=== PATIENT | female | born 1955 | race Caucasian/White ===

== ENCOUNTER 2023-02-22 14:17 | Outpatient (CLI) | payer OTHER, MEDICAID | END 2023-02-22 14:18 | disposition home or self-care (01) | LOC: BICMAMMO 14:17 | PROVIDERS: ATTEND Physician Assistant | DX: Z12.31 Encounter for screening mammogram for malignant neoplasm of breast (principal); Z80.3 Family history of malignant neoplasm of breast | CPT/HCPCS: 77063; 77067 ==

== ENCOUNTER 2023-03-15 16:30 | Inpatient (IN) | payer OTHER, MEDICAID ==
[2023-03-15 16:40] VITALS: BMI 23.6
[2023-03-17] MEDS ORDERED: Midazolam HCl 2 mg/2 ml Vial ONE (12:26)
[2023-03-17] MEDS ORDERED: fentaNYL 50 mcg/mL 1 mL Vial ONE (12:26)
[2023-03-17] MEDS ORDERED: Bupivacaine PF 0.5% 30 ML VIAL ONE (12:26)
[2023-03-17] MEDS ORDERED: Ipratropium/Albuterol 3 ML NEB ONE (13:41)
[2023-03-17] MEDS ORDERED: Indocyanine Green 25 MG/10 ML VIAL ONE (13:44)
[2023-03-17] MEDS ORDERED: Bupivacaine 0.25% HCL 30 ML VIAL ONE (13:44)
[2023-03-17] MEDS ORDERED: EPINEPHrine 1 MG/ML AMP ONE (13:44)
[2023-03-17] MEDS ORDERED: LevoFLOXacin 500 mg/D5W 100 ML BAG ONE (14:00)
[2023-03-17] MEDS ORDERED: Fentanyl 250 MCG/5 ML VIAL ONE (14:07)
[2023-03-17] MEDS ORDERED: Sodium Chloride 0.9% 100 ML ONE (14:19)
[2023-03-17] MEDS ORDERED: cefOXitin 2 GM VIAL ONE (14:19)
[2023-03-17] MEDS ORDERED: Glycopyrrolate 0.2 MG/ML 5 ML SYRINGE ONE (14:29)
[2023-03-17] MEDS ORDERED: Lidocaine 1% PF 5 ML VIAL ONE (14:29)
[2023-03-17] MEDS ORDERED: Rocuronium Bromide 10 MG/ML (10ML VIAL) ONE (14:29)
[2023-03-17] MEDS ORDERED: Ondansetron PF 4 MG/2 ML Vial ONE (14:29)
[2023-03-17] MEDS ORDERED: NEOSTIGMINE 3 MG/3 ML SYR 3 MG/3 ML SYRINGE ONE (14:29)
[2023-03-17] MEDS ORDERED: PHENYLEPHRINE-NS 100 MCG/ML 10 ML SYRINGE ONE ×2 (14:29)
[2023-03-17] MEDS ORDERED: Succinylcholine 200 MG/10 ml SYRINGE FS ONE (14:29)
[2023-03-17] MEDS ORDERED: PROPOFOL 200 MG/20 ML VIAL ONE (14:29)
[2023-03-17] MEDS ORDERED: Dexamethasone 20 MG/5 ML VIAL ONE (14:29)
[2023-03-17] MEDS ORDERED: Ondansetron PF 4 MG/2 ML Vial IVP PRN (16:59)
[2023-03-17] MEDS ORDERED: Promethazine HCl 25 MG/ML VIAL IM PRN ×2 (16:59→17:10)
[2023-03-17] MEDS ORDERED: Fentanyl 100 MCG/2 ML VIAL SLOW IVP PRN ×2 (16:59)
[2023-03-17] MEDS ORDERED: hydrALAZINE 20 MG/ML VIAL SLOW IVP PRN (16:59)
[2023-03-17] MEDS ORDERED: Ipratropium/Albuterol 3 ML NEB NEB PRN (16:59)
[2023-03-17] MEDS ORDERED: Ondansetron HCl/PF 4 MG/2 ML Vial IVP PRN (17:10)
[2023-03-17] MEDS ORDERED: HYDROmorphone 2 MG/ML VIAL SLOW IVP PRN (17:10)
[2023-03-17] MEDS ORDERED: Ketorolac Tromethamine 30 MG/ML VIAL IVP PRN (17:10)
[2023-03-17] MEDS ORDERED: Morphine Sulfate 2 MG/ML SYRINGE SLOW IVP PRN (17:10)
[2023-03-17] MEDS: HYDROcodone/Acetaminophen 7.5/325 mg Tablet PO PRN (18:18)
[2023-03-17] MEDS: D5 1/2 NS w/20 mEq KCL 1,000 ML IV SCH (18:18)
[2023-03-17] MEDS: Famotidine 20 MG TAB PO SCH (22:18)
[2023-03-17] MEDS: Famotidine/PF 20 mg/2ml Vial SLOW IVP SCH (22:32)
[2023-03-17] MEDS: Ketorolac Tromethamine 30 MG/ML VIAL IVP PRN (22:33)
[2023-03-18] MEDS: D5 1/2 NS w/20 mEq KCL 1,000 ML IV SCH ×2 (04:25→06:54)
[2023-03-18 06:11] LABS: #Monocytes 0.6 thou/uL (0.11-0.59); #Neutrophils 7.7 thou/uL (1.40-6.50); %Basophils 0.1 % (0.0-1.0); %Lymphocytes 13.1 % (21.0-51.0); %Monocytes 6.4 % (0.0-10.0); %Neutrophils 80.1 % (42.0-75.0); Hemoglobin 12.3 g/dL (12.0-16.0); Mean Corpuscular HGB CONC 33.2 g/dL (32.0-36.0); Mean Corpuscular Volume 93.2 fl (78.0-98.0); Mean Platelet Volume 10.8 fL (7.4-10.4); Platelet Count 183 10x3/uL (130-400); RBC Distribution Width 13.2 % (11.5-14.5); Red Blood Cell (RBC) Count 3.97 mill/uL (4.20-5.40); White Blood Cell (WBC) Count 9.6 10x3/uL (4.8-10.8)
[2023-03-18 06:33] LABS: Anion Gap 11 mmol/L (10-20); BUN (Urea Nitrogen) 9 mg/dL (9.8-20.1); Calc. Creatinine Clearance 72 mL/min (70-130); Calcium 8.8 mg/dL (7.8-10.44); Carbon Dioxide 22 mmol/L (23-31); Chloride 107 mmol/L (98-107); Estimated GFR 75; Glucose 143 mg/dL (80-115); Potassium 4.7 mmol/L (3.5-5.1); Sodium 135 mmol/L (136-145)
[2023-03-18] MEDS: Acetaminophen 325 MG TAB PO PRN ×2 (06:45→18:36)
[2023-03-18] MEDS: HYDROcodone/Acetaminophen 7.5/325 mg Tablet PO PRN ×3 (06:45→13:10)
[2023-03-18] MEDS: Famotidine/PF 20 mg/2ml Vial SLOW IVP SCH ×2 (08:58→21:25)
[2023-03-18] MEDS ORDERED: FLU VACC QS2023(65UP)/MF59C/PF 60 MCG/0.5 ML SYRINGE IM ONE (09:00)
[2023-03-18] MEDS: Famotidine 20 MG TAB PO SCH ×2 (09:01→21:22)
[2023-03-18] MEDS: Ketorolac Tromethamine 30 MG/ML VIAL IVP PRN ×2 (09:04→18:35)
[2023-03-19] MEDS: HYDROcodone/Acetaminophen 7.5/325 mg Tablet PO PRN ×2 (03:50→10:47)
[2023-03-19] MEDS: Famotidine 20 MG TAB PO SCH (09:08)
[2023-03-19] MEDS: Famotidine/PF 20 mg/2ml Vial SLOW IVP SCH (10:49)
[2023-03-19 13:31] VITALS: BP 149/72; TEMP 98.2
== END 2023-03-19 16:00 | disposition home or self-care (01) | DRG 331 ==
LOC: SURG A 03-17 11:55 → SURG B 03-17 18:19
PROVIDERS: ADMIT Surgery; ATTEND Surgery
PROC: 0DTF4ZZ Resection of Right Large Intestine, Percutaneous Endoscopic Approach (ICD-10-PCS; principal; 2023-03-17)
PROC: 8E0W4CZ Robotic Assisted Procedure of Trunk Region, Percutaneous Endoscopic Approach (ICD-10-PCS; 2023-03-17)
PROC: 3E033XZ Introduction of Vasopressor into Peripheral Vein, Percutaneous Approach (ICD-10-PCS; 2023-03-17)
DX: K63.89 Other specified diseases of intestine (principal); K66.0 Peritoneal adhesions (postprocedural) (postinfection); E78.00 Pure hypercholesterolemia, unspecified; E78.5 Hyperlipidemia, unspecified; Z88.0 Allergy status to penicillin; Z88.5 Allergy status to narcotic agent; Z88.8 Allergy status to other drugs, medicaments and biological substances; Z82.49 Family history of ischemic heart disease and other diseases of the circulatory system; Z79.899 Other long term (current) drug therapy
CPT/HCPCS: 36415; 36416; 80048; 85025; 88309; A4314; J0171; J0360; J0694; J1100; J1650; J1885; J1956; J2250; J2405; J2704; J3010; J3480; J3490; J7620; S0020; S0028

== ENCOUNTER 2023-03-22 05:05 | Inpatient (IN) | payer OTHER, MEDICAID ==
[2023-03-22] MEDS ORDERED: Morphine 4 MG/ML VIAL ONE (05:29)
[2023-03-22 05:43] LABS: %Basophils 0.2 % (0.0-1.0); %Eosinophils 0.5 % (0.0-10.0); %Lymphocytes 16.8 % (21.0-51.0); %Neutrophils 70.3 % (42.0-75.0); Hematocrit 44.2 % (36.0-47.0); Hemoglobin 14.6 g/dL (12.0-16.0); Mean Corpuscular Volume 93.8 fl (78.0-98.0); Mean Platelet Volume 10.8 fL (7.4-10.4); Platelet Count 289 10x3/uL (130-400); RBC Distribution Width 13.6 % (11.5-14.5); Red Blood Cell (RBC) Count 4.71 mill/uL (4.20-5.40); White Blood Cell (WBC) Count 8.5 10x3/uL (4.8-10.8)
[2023-03-22] MEDS ORDERED: Promethazine HCl 12.5 MG in Sodium Chloride 0.9% 50 ML IVPB SCH (05:45)
[2023-03-22 06:07] LABS: ALT (SGPT) 19 U/L (8-55); AST (SGOT) 16 U/L (5-34); Albumin 4.1 g/dL (3.4-4.8); Alkaline Phosphatase 54 U/L (40-110); Anion Gap 17 mmol/L (10-20); BUN (Urea Nitrogen) 39 mg/dL (9.8-20.1); Bilirubin, Total 0.7 mg/dL (0.2-1.2); Calc. Creatinine Clearance 0 mL/min (70-130); Calcium 9.9 mg/dL (7.8-10.44); Carbon Dioxide 31 mmol/L (23-31); Chloride 94 mmol/L (98-107); Estimated GFR 29; Globulin 2.8 g/dL (2.4-3.5); Glucose 123 mg/dL (80-115); Lipase 21 U/L (8-78); Potassium 4.7 mmol/L (3.5-5.1); Protein, Total 6.9 g/dL (5.8-8.1); Sodium 137 mmol/L (136-145)
[2023-03-22 06:09] LABS: Troponin I Less than 0.010 ng/mL (< 0.028)
[2023-03-22] MEDS ORDERED: Senokot S 8.6-50 MG TAB PO PRN (07:47)
[2023-03-22] MEDS ORDERED: Atorvastatin Calcium 40 MG TAB PO SCH (09:00)
[2023-03-22 09:14] VITALS: BMI 22.9
[2023-03-22] MEDS: Atorvastatin Calcium 40 MG TAB PO SCH (09:32)
[2023-03-22] MEDS: Sodium Chloride 0.9% 1,000 ML IV SCH ×2 (09:32→17:32)
[2023-03-22] MEDS ORDERED: Iopamidol 370 76% 100 ML VIAL ONE (14:07)
[2023-03-22] MEDS: Ondansetron PF 4 MG/2 ML Vial IVP PRN ×2 (14:34→20:49)
[2023-03-22] MEDS: Acetaminophen 325 MG TAB PO PRN (14:43)
[2023-03-23] MEDS: Acetaminophen 325 MG TAB PO PRN (00:14)
[2023-03-23] MEDS ORDERED: Promethazine HCl 12.5 MG in Sodium Chloride 0.9% 50 ML IVPB SCH (00:15)
[2023-03-23 05:28] LABS: #Monocytes 0.9 thou/uL (0.11-0.59); #Neutrophils 4.9 thou/uL (1.40-6.50); %Basophils 0.3 % (0.0-1.0); %Eosinophils 0.3 % (0.0-10.0); %Lymphocytes 10.4 % (21.0-51.0); %Monocytes 13.3 % (0.0-10.0); %Neutrophils 75.4 % (42.0-75.0); Hematocrit 40.8 % (36.0-47.0); Hemoglobin 13.2 g/dL (12.0-16.0); Mean Corpuscular HGB CONC 32.4 g/dL (32.0-36.0); Mean Corpuscular Hemoglobin 30.5 pg (27.0-31.0); Mean Corpuscular Volume 94.2 fl (78.0-98.0); Mean Platelet Volume 10.9 fL (7.4-10.4); Platelet Count 236 10x3/uL (130-400); RBC Distribution Width 13.6 % (11.5-14.5); Red Blood Cell (RBC) Count 4.33 mill/uL (4.20-5.40); White Blood Cell (WBC) Count 6.5 10x3/uL (4.8-10.8)
[2023-03-23] MEDS: Ondansetron PF 4 MG/2 ML Vial IVP PRN ×3 (05:43→22:49)
[2023-03-23 06:01] LABS: Anion Gap 17 mmol/L (10-20); BUN (Urea Nitrogen) 31 mg/dL (9.8-20.1); Calc. Creatinine Clearance 55 mL/min (70-130); Carbon Dioxide 27 mmol/L (23-31); Chloride 100 mmol/L (98-107); Estimated GFR 54; Glucose 118 mg/dL (80-115); Potassium 3.9 mmol/L (3.5-5.1); Sodium 140 mmol/L (136-145)
[2023-03-23] MEDS: Sodium Chloride 0.9% 1,000 ML IV SCH ×3 (07:26→22:50)
[2023-03-23] MEDS: Atorvastatin Calcium 40 MG TAB PO SCH (08:32)
[2023-03-23] MEDS ORDERED: Promethazine HCl 12.5 MG in Sodium Chloride 0.9% 50 ML IVPB PRN (12:12)
[2023-03-24 05:48] LABS: Hematocrit 40.8 % (36.0-47.0); Hemoglobin 13.2 g/dL (12.0-16.0); Mean Corpuscular HGB CONC 32.4 g/dL (32.0-36.0); Mean Corpuscular Hemoglobin 30.7 pg (27.0-31.0); Mean Corpuscular Volume 94.9 fl (78.0-98.0); Mean Platelet Volume 10.9 fL (7.4-10.4); Platelet Count 227 10x3/uL (130-400); RBC Distribution Width 13.7 % (11.5-14.5); White Blood Cell (WBC) Count 5.2 10x3/uL (4.8-10.8)
[2023-03-24 06:22] LABS: Anion Gap 14 mmol/L (10-20); BUN (Urea Nitrogen) 25 mg/dL (9.8-20.1); Calc. Creatinine Clearance 61 mL/min (70-130); Calcium 8.3 mg/dL (7.8-10.44); Carbon Dioxide 27 mmol/L (23-31); Chloride 103 mmol/L (98-107); Estimated GFR 61; Glucose 125 mg/dL (80-115); Magnesium 2.4 mg/dL (1.6-2.6); Potassium 3.2 mmol/L (3.5-5.1); Sodium 141 mmol/L (136-145)
[2023-03-24] MEDS ORDERED: Potassium Chloride 20 MEQ TAB PO SCH (08:45)
[2023-03-24] MEDS: Atorvastatin Calcium 40 MG TAB PO SCH (09:09)
[2023-03-24] MEDS: Ondansetron PF 4 MG/2 ML Vial IVP PRN ×3 (09:12→22:17)
[2023-03-24] MEDS: Sodium Chloride 0.9% 1,000 ML IV SCH (09:18)
[2023-03-24] MEDS: D5 1/2 NS w/40 mEq KCL 1,000 ML IV SCH ×2 (10:28→18:34)
[2023-03-24] MEDS ORDERED: Acetaminophen 500 MG TAB PO SCH (10:45)
[2023-03-24] MEDS: Ketorolac Tromethamine 30 MG/ML VIAL IVP SCH ×3 (11:29→23:21)
[2023-03-24] MEDS ORDERED: Iopamidol-370 76% 500 ML MDV (1 ML CHARGE) ONE (11:31)
[2023-03-24] MEDS: Acetaminophen 500 MG TAB PO SCH ×2 (17:09→20:37)
[2023-03-25] MEDS: Morphine 2 MG/ML VIAL SLOW IVP PRN ×2 (02:06→17:16)
[2023-03-25] MEDS: D5 1/2 NS w/40 mEq KCL 1,000 ML IV SCH ×3 (02:12→17:12)
[2023-03-25] MEDS: Ketorolac Tromethamine 30 MG/ML VIAL IVP SCH ×4 (05:31→22:02)
[2023-03-25] MEDS: Ondansetron PF 4 MG/2 ML Vial IVP PRN ×3 (05:34→22:05)
[2023-03-25 06:59] LABS: Anion Gap 11 mmol/L (10-20); BUN (Urea Nitrogen) 24 mg/dL (9.8-20.1); Calc. Creatinine Clearance 58 mL/min (70-130); Calcium 7.7 mg/dL (7.8-10.44); Carbon Dioxide 24 mmol/L (23-31); Chloride 109 mmol/L (98-107); Estimated GFR 58; Glucose 130 mg/dL (80-115); Potassium 4.4 mmol/L (3.5-5.1); Sodium 140 mmol/L (136-145)
[2023-03-25] MEDS: Acetaminophen 500 MG TAB PO SCH ×4 (09:34→20:18)
[2023-03-26] MEDS: D5 1/2 NS w/40 mEq KCL 1,000 ML IV SCH ×3 (00:52→20:19)
[2023-03-26] MEDS: Morphine 2 MG/ML VIAL SLOW IVP PRN ×2 (01:01→14:48)
[2023-03-26 05:02] LABS: Hematocrit 40.1 % (36.0-47.0); Mean Corpuscular HGB CONC 32.4 g/dL (32.0-36.0); Mean Corpuscular Hemoglobin 30.4 pg (27.0-31.0); Mean Corpuscular Volume 93.9 fl (78.0-98.0); Mean Platelet Volume 10.8 fL (7.4-10.4); Platelet Count 242 10x3/uL (130-400); RBC Distribution Width 13.7 % (11.5-14.5); Red Blood Cell (RBC) Count 4.27 mill/uL (4.20-5.40); White Blood Cell (WBC) Count 9.2 10x3/uL (4.8-10.8)
[2023-03-26] MEDS: Ketorolac Tromethamine 30 MG/ML VIAL IVP SCH ×3 (05:16→18:59)
[2023-03-26 05:23] LABS: Anion Gap 10 mmol/L (10-20); BUN (Urea Nitrogen) 15 mg/dL (9.8-20.1); Calc. Creatinine Clearance 74 mL/min (70-130); Calcium 7.6 mg/dL (7.8-10.44); Carbon Dioxide 22 mmol/L (23-31); Chloride 109 mmol/L (98-107); Estimated GFR 77; Glucose 129 mg/dL (80-115); Potassium 4.5 mmol/L (3.5-5.1); Sodium 136 mmol/L (136-145)
[2023-03-26] MEDS: Acetaminophen 500 MG TAB PO SCH ×4 (09:14→20:21)
[2023-03-26] MEDS: Ondansetron PF 4 MG/2 ML Vial IVP PRN (11:45)
[2023-03-26] MEDS ORDERED: hydrALAZINE 20 MG/ML VIAL SLOW IVP PRN (16:23)
[2023-03-27] MEDS: Ketorolac Tromethamine 30 MG/ML VIAL IVP SCH ×5 (00:22→23:56)
[2023-03-27] MEDS: D5 1/2 NS w/40 mEq KCL 1,000 ML IV SCH ×5 (00:26→22:16)
[2023-03-27] MEDS: Morphine 2 MG/ML VIAL SLOW IVP PRN ×2 (04:14→20:12)
[2023-03-27] MEDS: Ondansetron PF 4 MG/2 ML Vial IVP PRN ×3 (04:15→21:43)
[2023-03-27 05:05] LABS: Anion Gap 9 mmol/L (10-20); BUN (Urea Nitrogen) 13 mg/dL (9.8-20.1); Calc. Creatinine Clearance 82 mL/min (70-130); Calcium 7.1 mg/dL (7.8-10.44); Carbon Dioxide 21 mmol/L (23-31); Chloride 108 mmol/L (98-107); Estimated GFR 88; Glucose 112 mg/dL (80-115); Potassium 4.5 mmol/L (3.5-5.1); Sodium 133 mmol/L (136-145)
[2023-03-27] MEDS ORDERED: Fleet Saline Enema 133 ML BOT PR SCH (08:30)
[2023-03-27] MEDS: Acetaminophen 500 MG TAB PO SCH ×4 (08:36→22:15)
[2023-03-27] MEDS: D5W-AA 4.25% with LYTES 1,000 ML IV SCH (11:49)
[2023-03-28] MEDS: Hyoscyamine SL 0.125 MG TAB PO PRN (00:38)
[2023-03-28] MEDS: D5 1/2 NS w/40 mEq KCL 1,000 ML IV SCH ×2 (03:59→16:57)
[2023-03-28] MEDS: Ketorolac Tromethamine 30 MG/ML VIAL IVP SCH ×4 (05:55→23:58)
[2023-03-28 06:02] LABS: Anion Gap 8 mmol/L (10-20); BUN (Urea Nitrogen) 9 mg/dL (9.8-20.1); Calc. Creatinine Clearance 87 mL/min (70-130); Calcium 7.2 mg/dL (7.8-10.44); Carbon Dioxide 25 mmol/L (23-31); Chloride 106 mmol/L (98-107); Estimated GFR 94; Glucose 119 mg/dL (80-115); Potassium 4.6 mmol/L (3.5-5.1); Sodium 134 mmol/L (136-145)
[2023-03-28] MEDS: Acetaminophen 500 MG TAB PO SCH ×4 (09:38→21:05)
[2023-03-28] MEDS: Ondansetron PF 4 MG/2 ML Vial IVP PRN (13:40)
[2023-03-28] MEDS: D5W-AA 4.25% with LYTES 1,000 ML IV SCH (18:22)
[2023-03-29] MEDS: D5 1/2 NS w/40 mEq KCL 1,000 ML IV SCH ×2 (04:15→20:41)
[2023-03-29] MEDS: Hyoscyamine SL 0.125 MG TAB PO PRN (04:20)
[2023-03-29 05:54] LABS: #Eosinphils 0.1 thou/uL (0.0-0.7); #Monocytes 0.8 thou/uL (0.11-0.59); %Basophils 0.4 % (0.0-1.0); %Eosinophils 1.1 % (0.0-10.0); %Lymphocytes 25.2 % (21.0-51.0); %Monocytes 10.2 % (0.0-10.0); %Neutrophils 61.4 % (42.0-75.0); Hematocrit 37.3 % (36.0-47.0); Hemoglobin 12.1 g/dL (12.0-16.0); Mean Corpuscular HGB CONC 32.4 g/dL (32.0-36.0); Mean Corpuscular Hemoglobin 30.9 pg (27.0-31.0); Mean Corpuscular Volume 95.4 fl (78.0-98.0); Mean Platelet Volume 10.5 fL (7.4-10.4); Platelet Count 246 10x3/uL (130-400); RBC Distribution Width 14.2 % (11.5-14.5); Red Blood Cell (RBC) Count 3.91 mill/uL (4.20-5.40); White Blood Cell (WBC) Count 8.1 10x3/uL (4.8-10.8)
[2023-03-29 06:18] LABS: Anion Gap 7 mmol/L (10-20); BUN (Urea Nitrogen) 8 mg/dL (9.8-20.1); Calc. Creatinine Clearance 84 mL/min (70-130); Calcium 7.9 mg/dL (7.8-10.44); Carbon Dioxide 29 mmol/L (23-31); Chloride 105 mmol/L (98-107); Estimated GFR 90; Glucose 109 mg/dL (80-115); Potassium 4.3 mmol/L (3.5-5.1); Sodium 137 mmol/L (136-145)
[2023-03-29] MEDS: Ketorolac Tromethamine 30 MG/ML VIAL IVP SCH ×2 (06:44→11:41)
[2023-03-29] MEDS: Acetaminophen 500 MG TAB PO SCH ×4 (09:03→20:42)
[2023-03-30 07:19] LABS: #Eosinphils 0.1 thou/uL (0.0-0.7); #Monocytes 0.6 thou/uL (0.11-0.59); #Neutrophils 3.7 thou/uL (1.40-6.50); %Basophils 0.6 % (0.0-1.0); %Eosinophils 1.6 % (0.0-10.0); %Lymphocytes 27.7 % (21.0-51.0); %Monocytes 9.7 % (0.0-10.0); %Neutrophils 58.7 % (42.0-75.0); Hematocrit 35.3 % (36.0-47.0); Hemoglobin 11.6 g/dL (12.0-16.0); Mean Corpuscular HGB CONC 32.9 g/dL (32.0-36.0); Mean Corpuscular Hemoglobin 31.4 pg (27.0-31.0); Mean Corpuscular Volume 95.4 fl (78.0-98.0); Mean Platelet Volume 10.3 fL (7.4-10.4); Platelet Count 224 10x3/uL (130-400); RBC Distribution Width 14.1 % (11.5-14.5); White Blood Cell (WBC) Count 6.3 10x3/uL (4.8-10.8)
[2023-03-30 07:36] LABS: Anion Gap 10 mmol/L (10-20); BUN (Urea Nitrogen) 7 mg/dL (9.8-20.1); Calc. Creatinine Clearance 95 mL/min (70-130); Calcium 7.9 mg/dL (7.8-10.44); Carbon Dioxide 26 mmol/L (23-31); Chloride 106 mmol/L (98-107); Estimated GFR 96; Glucose 109 mg/dL (80-115); Potassium 3.9 mmol/L (3.5-5.1); Sodium 138 mmol/L (136-145)
[2023-03-30] MEDS: Acetaminophen 500 MG TAB PO SCH ×4 (08:21→21:56)
[2023-03-30] MEDS: D5 1/2 NS w/40 mEq KCL 1,000 ML IV SCH ×2 (11:54→21:57)
[2023-03-31 07:03] LABS: Anion Gap 12 mmol/L (10-20); BUN (Urea Nitrogen) 5 mg/dL (9.8-20.1); Calc. Creatinine Clearance 95 mL/min (70-130); Calcium 8.2 mg/dL (7.8-10.44); Carbon Dioxide 25 mmol/L (23-31); Chloride 103 mmol/L (98-107); Estimated GFR 96; Glucose 96 mg/dL (80-115); Potassium 3.2 mmol/L (3.5-5.1); Sodium 137 mmol/L (136-145)
[2023-03-31] MEDS: Acetaminophen 500 MG TAB PO SCH ×2 (08:28→16:44)
[2023-03-31] MEDS: D5 1/2 NS w/40 mEq KCL 1,000 ML IV SCH (12:00)
[2023-03-31 18:23] VITALS: BP 135/65; TEMP 97.9
== END 2023-03-31 16:50 | disposition home or self-care (01) | DRG 394 ==
LOC: ERS 05:05 → SURG B 07:49 → OBSVTOIN 03-23 12:36
PROVIDERS: ADMIT Family Medicine; ATTEND Internal Medicine
DX: K91.89 Other postprocedural complications and disorders of digestive system (principal); C18.9 Malignant neoplasm of colon, unspecified; K56.7 Ileus, unspecified; N17.9 Acute kidney failure, unspecified; I10 Essential (primary) hypertension; E78.5 Hyperlipidemia, unspecified; I73.9 Peripheral vascular disease, unspecified; E87.6 Hypokalemia; Z90.49 Acquired absence of other specified parts of digestive tract; Z79.82 Long term (current) use of aspirin; Z79.899 Other long term (current) drug therapy
CPT/HCPCS: 36415; 71270; 74018; 74019; 74177; 80048; 80053; 83690; 83735; 84484; 85025; 85027; 87324; 87449; 93005; 96365; 96372; 96375; 96376; G0378; J0360; J1650; J1885; J2270; J2272; J2405; J2550; J3480; J7050; Q9967

== ENCOUNTER 2024-04-26 13:34 | Outpatient (CLI) | payer MEDICARE | END 2024-04-26 13:35 | disposition home or self-care (01) | LOC: BICMAMMO 13:34 | PROVIDERS: ATTEND Family Medicine | DX: Z12.31 Encounter for screening mammogram for malignant neoplasm of breast (principal); Z80.3 Family history of malignant neoplasm of breast | CPT/HCPCS: 77063; 77067 ==